=== PATIENT | male | born 1970 | race Caucasian/White ===

== ENCOUNTER 2020-01-02 12:12 | Inpatient (IN) | payer OTHER ==
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
[2020-01-02] MEDS ORDERED: ACETAMINOPHEN 325 MG TABLET (FP) PO PRN ×2 (15:28)
[2020-01-02] MEDS ORDERED: chlordiazePOXIDE HCL 25 MG CAPSULE PO PRN (15:28)
[2020-01-02] MEDS ORDERED: MAGNESIUM HYDROX 2400MG/30ML ORAL SUSPENSION 30 ML CUP PO PRN (15:28)
[2020-01-02] MEDS ORDERED: MAG HYDROX/AL HYDROX/SIMETH 30 ML UNIT-DOSE CUP PO PRN (15:28)
[2020-01-02] MEDS ORDERED: BISMUTH SUBSALICYLATE 524 MG/30 ML UD PO PRN (15:28)
[2020-01-02] MEDS ORDERED: hydrOXYzine PAMOATE 25 MG CAPSULE (FP) PO PRN (15:28)
[2020-01-02] MEDS ORDERED: MENTHOL/PHENOL 1 EACH UD MM PRN (15:28)
[2020-01-02] MEDS ORDERED: MAGNESIUM CITRATE 300 ML BOTTLE PO PRN (15:28)
[2020-01-02] MEDS ORDERED: METHOCARBAMOL 500 MG TABLET PO PRN (15:28)
[2020-01-02 17:05] VITALS: BMI 24.0
[2020-01-02] MEDS: chlordiazePOXIDE HCL 25 MG CAPSULE PO SCH ×2 (18:12→22:04)
[2020-01-02] MEDS: NICOTINE 21 MG/24 HOURS TOPICAL PATCH TD SCH (18:14)
[2020-01-02] MEDS: THIAMINE HCL 100 MG TABLET (FP) PO SCH (22:04)
[2020-01-02] MEDS: MELATONIN 5 MG TABLETS PO PRN (22:06)
[2020-01-03] MEDS: chlordiazePOXIDE HCL 25 MG CAPSULE PO SCH ×4 (05:44→22:28)
--- NOTE | 2020-01-03 09:14 | PN ---
S CIWA - CIWA Score Nausea/Vomitin-No Nausea/No Vomiting Muscle Tremors: 2 Anxiety: 3 Agitation: 4-Moderately Restless (keep waking me up) Paroxysmal Sweats: 2 Orientation: 0-Oriented Tacttile Disturbances: 0-None Auditory Disturbances: 0-None Visual Disturbances: 1-Very Mild Sensitivity Headache: 0-None Present CIWA-Ar Total Score: 12 [facility] Progress Note (SOAP) Subjective: 49 years old male admitted on 01/02/20 for alcohol withdrawal sx management treating with librium regiment ate breakfast resting in bed limited conversation with staff "stop waking me up " Objective: 01/03/20 09:13 Vital Signs Temperature 96.9 F L 01/03/20 05:58 Pulse Rate 78 01/03/20 05:58 Respiratory Rate 18 01/03/20 07:34 Blood Pressure 145/88 01/03/20 05:58 O2 Sat by Pulse Oximetry (%) 01/03/20 09:14 lab pending bp elevation upon admission patient refuses to provide more information regarding hypertension begin amlodipine 10 mg po daily 01/03/20 09:15 Assessment: 01/03/20 09:16 alcohol withdrawal Plan: librium regiment
[2020-01-03] MEDS ORDERED: PRENATAL VITAMINS W/ FOLIC ACID TABLET (FP) PO SCH (10:00)
[2020-01-03] MEDS ORDERED: amLODIPine BESYLATE 10 MG TABLET (FP) PO SCH (10:00)
[2020-01-03] MEDS: NICOTINE 21 MG/24 HOURS TOPICAL PATCH TD SCH (10:35)
[2020-01-03] MEDS: IBUPROFEN 400 MG TABLET (FP) PO PRN ×2 (10:37→17:52)
[2020-01-03 10:38] LABS: HEMATOCRIT 45.1 % (35.4-49); HEMOGLOBIN 14.9 GM/dL (11.7-16.9); MCH 27.3 pg (25.7-33.7); MCHC 33.1 g/dl (32.0-35.9); MEAN CELL VOLUME 82.3 fl (80-96); MEAN PLT VOLUME 10.4 fl (7.5-11.1); PLATELET COUNT 194 K/MM3 (134-434); RBC 5.47 M/mm3 (4.00-5.60); RDW 15.5 % (11.9-15.9); WHITE BLOOD COUNT 5.7 K/mm3 (4.0-10.0)
[2020-01-03 10:50] LABS: ALBUMIN 3.6 g/dl (3.4-5.0); BILIRUBIN,TOTAL 0.7 mg/dL (0.2-1); BLOOD UREA NITROGEN 14.2 mg/dL (7-18); CALCIUM 9.2 mg/dL (8.5-10.1); TOT PROT 8.6 g/dl (6.4-8.2)
--- NOTE | 2020-01-03 12:37 | CONSULT ---
[facility] Psychiatric Consult - Data Date of interview: 01/03/20 Admission source: [facility] Identifying data: First visit to [facility] and admission to [address] [place] [address] for this 49 y/o male self-referred for detoxification treatment. AL issues : alcohol, cannabis, nicotine. Patient is , father of three, domiciled, unemployed nd supported on SSI benefits. Substance Abuse History: Discussed with the patient. Details in current [facility] report as follows : Smoking history: Current every day smoker. Aproximately how many cigarettes per day: 20. Initiated information on smoking cessation: Yes. 'Breaking Loose' booklet given: 01/02/20. - Substance & Tx. History. Substance Use Type: Alcohol, Marijuana. - Substances abused. Alcohol. Substance route: Oral. Frequency: Daily. Amount used: 4-5 pints of Rum or Vodka, 3-4 24 ounce beer. Age of first use: 16. Date of last use: 01/01/20. * * Marijuana/Hashish. Frequency: Daily. Amount used: 1-2 joints per day. Age of first use: 9. Date of last use: 01/01/20 Medical History: Medical profile is remarkable for chronic lumbar pain, hepatitis C and HIV infection (on ART medications). Reported allergy to penicillins. Psychiatric History: Patient admits to history of psychiatric hospitalizations ( institutions in [place]) about 15 years ago. Reportedly diagnosed with Bipolar Disorder and ADHD. Mr Corey indicates that he has been off psychotropic medications for months. No affiliation with psychiatric OPD care providers. Antecedent of one suicide attempt : age 16. Physical/Sexual Abuse/Trauma History: Patient denies history of abuse. Additional Comment: Urine drug screen results: THC-Marijuana, BZO- Benzodiazepines. Noted. Mental Status Exam - Mental Status Exam Alert and Oriented to: Time, Place, Person Cognitive Function: Good Patient Appearance: Unkempt, Disheveled Mood: Nervous, Withdrawn Affect: Mood Congruent, Constricted Patient Behavior: Fatigued, Appropriate, Cooperative Speech Pattern: Clear, Appropriate Voice Loudness: Normal Thought Process: Goal Oriented Thought Disorder: Not Present Hallucinations: Denies Suicidal Ideation: Denies Homicidal Ideation: Denies Insight/Judgement: Poor Sleep: Well Appetite: Good Gait/Station: Other (not obseved. In bed all morning) Psychiatric Findings - Problem List ([place] 1, 2,3) (1) Alcohol withdrawal syndrome without complication Current Visit: Yes Status: Acute (2) Marijuana abuse Current Visit: Yes Status: Chronic (3) Nicotine dependence Current Visit: Yes Status: Chronic (4) Substance induced mood disorder Current Visit: Yes Status: Chronic - Initial Treatment Plan Initial Treatment Plan: Psychoeducation. Sleep hygiene. Detoxification. Support. MAT services discussed with patient. Observation.
--- NOTE | 2020-01-03 13:04 | EKG ---
Test Reason : Blood Pressure : / mmHG Vent. Rate : 079 BPM Atrial Rate : 079 BPM P-R Int : 132 ms QRS Dur : 100 ms QT Int : 368 ms P-R-T Axes : 061 020 054 degrees QTc Int : 421 ms NORMAL SINUS RHYTHM RSR' OR QR PATTERN IN V1 SUGGESTS RIGHT VENTRICULAR CONDUCTION DELAY MINIMAL VOLTAGE CRITERIA FOR LVH, MAY BE NORMAL VARIANT BORDERLINE ECG NO PREVIOUS ECGS AVAILABLE Confirmed by Quinton Cowan MD ([id number]) on 01/03/2020 1:04:34 PM Referred By: Confirmed By:Quinton Cowan MD
[2020-01-03 13:14] VITALS: TEMP 97.5
[2020-01-03] MEDS: THIAMINE HCL 100 MG TABLET (FP) PO SCH (22:28)
[2020-01-03] MEDS: MELATONIN 5 MG TABLETS PO PRN (22:28)
[2020-01-04] MEDS ORDERED: chlordiazePOXIDE HCL 25 MG CAPSULE PO SCH (05:00)
[2020-01-04] MEDS: IBUPROFEN 400 MG TABLET (FP) PO PRN (05:58)
[2020-01-04 06:42] VITALS: BP 130/95; PULSE 108
--- NOTE | 2020-01-04 08:59 | DS ---
[facility] Detox Discharge Summary Admission Date: 01/02/20 Discharge Date: 01/04/20 - History Present History: Alcohol Dependence Additional Comments: 49 years old male admitted on 01/02/20 for alcohol withdrawal sx management treated with librium detox regiment seen by psychiatrist no medical intervention at this time Mr Corey prefers to leave the detox today that "I have to sign off my housing today" patient is doing well through out the detox process attended behavior and psychosocial therapies groups and meetings discussed aftercare with staff and positive about sobriety maintenance patient is alert oriented x 3 cardiac s1s2 regular rate rhythm respiratory clear lungs bilaterally on auscultation extremities full range of motion Pertinent Past History: time for discharge: 33 minutes - Physical Exam Results Vital Signs: Vital Signs Temperature 97.5 F L 01/04/20 06:41 Pulse Rate 108 H 01/04/20 06:41 Respiratory Rate 18 01/04/20 06:41 Blood Pressure 130/95 01/04/20 06:41 O2 Sat by Pulse Oximetry (%) Pertinent Admission Physical Exam Findings: alcohol withdrawal Laboratory Last Values WBC 5.7 K/mm3 (4.0-10.0) 01/03/20 07:45 RBC 5.47 M/mm3 (4.00-5.60) 01/03/20 07:45 Hgb 14.9 GM/dL (11.7-16.9) 01/03/20 07:45 Hct 45.1 % (35.4-49) 01/03/20 07:45 MCV 82.3 fl (80-96) 01/03/20 07:45 MCH 27.3 pg (25.7-33.7) 01/03/20 07:45 MCHC 33.1 g/dl (32.0-35.9) 01/03/20 07:45 RDW 15.5 % (11.9-15.9) 01/03/20 07:45 Plt Count 194 K/MM3 (134-434) 01/03/20 07:45 MPV 10.4 fl (7.5-11.1) 01/03/20 07:45 Sodium 136 mmol/L (136-145) 01/03/20 07:45 Potassium 4.0 mmol/L (3.5-5.1) 01/03/20 07:45 Chloride 104 mmol/L (98-107) 01/03/20 07:45 Carbon Dioxide 26 mmol/L (21-32) 01/03/20 07:45 Anion Gap 6 MMOL/L (8-16) L 01/03/20 07:45 BUN 14.2 mg/dL (7-18) 01/03/20 07:45 Creatinine 1.0 mg/dL (0.55-1.3) 01/03/20 07:45 Est GFR (CKD-EPI)AfAm 103.42 01/03/20 07:45 Est GFR (CKD-EPI)NonAf 89.23 01/03/20 07:45 Random Glucose 88 mg/dL (74-106) 01/03/20 07:45 Calcium 9.2 mg/dL (8.5-10.1) 01/03/20 07:45 Total Bilirubin 0.7 mg/dL (0.2-1) 01/03/20 07:45 AST 192 U/L (15-37) H 01/03/20 07:45 ALT 223 U/L (13-61) H 01/03/20 07:45 Alkaline Phosphatase 76 U/L (45-117) 01/03/20 07:45 Total Protein 8.6 g/dl (6.4-8.2) H 01/03/20 07:45 Albumin 3.6 g/dl (3.4-5.0) 01/03/20 07:45 RPR Titer Nonreactive (NONREACTIVE) 01/03/20 07:45 lab noted possible alcohol induced ast elevation - Treatment Hospital Course: Detox Protocol Followed, Detoxed Safely, Responded well, Discharged Condition Good, Rehab Referral Accepted Patient has Accepted a Rehab Referral to: [facility] - Diagnosis (1) Alcohol withdrawal syndrome without complication Status: Acute (2) Nicotine dependence Status: Acute Qualifiers: Nicotine product type: cigarettes Substance use status: in withdrawal Qualified Code(s): F17.213 - Nicotine dependence, cigarettes, with withdrawal (3) Substance induced mood disorder Status: Suspected - AMA Did Patient Leave Against Medical Advice: No CIWA Score - CIWA Score Nausea/Vomitin-No Nausea/No Vomiting Muscle Tremors: 1-None Visible, but [place] Anxiety: 2 Agitation: 4-Moderately Restless (keep waking me up) Paroxysmal Sweats: 1-Minimal Palms Moist Orientation: 0-Oriented Tacttile Disturbances: 0-None Auditory Disturbances: 0-None Visual Disturbances: 0-None Headache: 0-None Present CIWA-Ar Total Score: 8
[2020-01-05] MEDS ORDERED: chlordiazePOXIDE HCL 10 MG CAPSULE PO PRN
[2020-01-05] MEDS ORDERED: chlordiazePOXIDE HCL 10 MG CAPSULE PO SCH (05:00)
[2020-01-06] MEDS ORDERED: chlordiazePOXIDE HCL 10 MG CAPSULE PO SCH (05:00)
[2020-01-07] MEDS ORDERED: chlordiazePOXIDE HCL 10 MG CAPSULE PO ONE (05:00)
== END 2020-01-04 09:00 | disposition home or self-care (01) | DRG 775 ==
LOC: YASAS 12:12 → Y3N 17:23
PROVIDERS: ADMIT Allergy & Immunology; ATTEND Allergy & Immunology
PROC: HZ2ZZZZ Detoxification Services for Substance Abuse Treatment (ICD-10-PCS; principal; 2020-01-02)
DX: F10.230 Alcohol dependence with withdrawal, uncomplicated (principal); F12.10 Cannabis abuse, uncomplicated; F17.210 Nicotine dependence, cigarettes, uncomplicated; F19.24 Other psychoactive substance dependence with psychoactive substance-induced mood disorder; F31.89 Other bipolar disorder; F20.9 Schizophrenia, unspecified; Z21 Asymptomatic human immunodeficiency virus [HIV] infection status; M54.5 Low back pain; G89.29 Other chronic pain; Z86.19 Personal history of other infectious and parasitic diseases; Z88.0 Allergy status to penicillin
CPT/HCPCS: 36415; 80053; 85027; 86593; 93005; 93010

== ENCOUNTER 2020-10-30 08:08 | Inpatient (IN) | payer OTHER ==
[2020-10-30 09:11] VITALS: BMI 23.5
[2020-10-30] MEDS ORDERED: MENTHOL/PHENOL 1 EACH UD MM PRN (09:30)
[2020-10-30] MEDS ORDERED: NICOTINE POLACRILEX 2 MG GUM BUC PRN (09:30)
[2020-10-30] MEDS ORDERED: ACETAMINOPHEN 325 MG TABLET (FP) PO PRN ×2 (09:30)
[2020-10-30] MEDS ORDERED: MAG HYDROX/AL HYDROX/SIMETH 30 ML UNIT-DOSE CUP PO PRN (09:30)
[2020-10-30] MEDS ORDERED: BISMUTH SUBSALICYLATE 262 MG/15 ML BTL PO PRN (09:30)
[2020-10-30] MEDS ORDERED: MAGNESIUM CITRATE 300 ML BOTTLE PO PRN (09:30)
[2020-10-30] MEDS ORDERED: chlordiazePOXIDE HCL 25 MG CAPSULE PO PRN (09:30)
[2020-10-30] MEDS ORDERED: ONDANSETRON *ODT* 4 MG TABLET SL PRN (09:30)
[2020-10-30] MEDS ORDERED: METHOCARBAMOL 500 MG TABLET PO PRN (09:30)
[2020-10-30] MEDS ORDERED: MAGNESIUM HYDROX 2400MG/30ML ORAL SUSPENSION 30 ML CUP PO PRN (09:30)
[2020-10-30] MEDS ORDERED: LISINOPRIL 10 MG TABLET ONE (09:31)
[2020-10-30] MEDS: IBUPROFEN 400 MG TABLET (FP) PO PRN (10:00)
[2020-10-30] MEDS: LISINOPRIL 10 MG TABLET PO SCH (10:14)
[2020-10-30] MEDS: NICOTINE 7 MG/24 HOURS TOPICAL PATCH TD SCH (10:36)
[2020-10-30] MEDS: chlordiazePOXIDE HCL 25 MG CAPSULE PO SCH ×3 (10:37→22:40)
[2020-10-30] MEDS: hydrOXYzine PAMOATE 25 MG CAPSULE (FP) PO SCH ×4 (10:37→22:39)
[2020-10-30] MEDS: PRENATAL VITAMINS W/ FOLIC ACID TABLET (FP) PO SCH (10:37)
[2020-10-30 14:39] LABS: POTASSIUM 4.3 mmol/L (3.5-5.1)
[2020-10-30 14:42] LABS: CALCIUM 9.1 mg/dL (8.5-10.1)
[2020-10-30 14:43] LABS: ALBUMIN 3.5 g/dl (3.4-5.0); BLOOD UREA NITROGEN 22.8 mg/dL (7-18); HEMATOCRIT 40.3 % (35.4-49); HEMOGLOBIN 12.7 GM/dL (11.7-16.9); MCH 26.1 pg (25.7-33.7); MCHC 31.6 g/dl (32.0-35.9); MEAN CELL VOLUME 82.8 fl (80-96); MEAN PLT VOLUME 9.8 fl (7.5-11.1); PLATELET COUNT 194 K/MM3 (134-434); RBC 4.87 M/mm3 (4.00-5.60); WHITE BLOOD COUNT 5.8 K/mm3 (4.0-10.0)
[2020-10-30 14:46] LABS: BILIRUBIN,TOTAL 0.4 mg/dL (0.2-1)
[2020-10-30] MEDS ORDERED: MELATONIN 5 MG TABLETS PO SCH (22:00)
[2020-10-30] MEDS: THIAMINE HCL 100 MG TABLET (FP) PO SCH (22:38)
[2020-10-30] MEDS: MELATONIN 5 MG TABLETS PO PRN (22:38)
[2020-10-31] MEDS: chlordiazePOXIDE HCL 25 MG CAPSULE PO SCH ×2 (06:03→10:44)
[2020-10-31] MEDS: hydrOXYzine PAMOATE 25 MG CAPSULE (FP) PO SCH ×5 (06:03→22:20)
[2020-10-31] MEDS: IBUPROFEN 400 MG TABLET (FP) PO PRN ×2 (06:04→13:36)
[2020-10-31] MEDS: NICOTINE 7 MG/24 HOURS TOPICAL PATCH TD SCH (10:43)
[2020-10-31] MEDS: PRENATAL VITAMINS W/ FOLIC ACID TABLET (FP) PO SCH (10:43)
[2020-10-31] MEDS: LISINOPRIL 10 MG TABLET PO SCH (10:43)
[2020-10-31] MEDS: risperiDONE 1 MG TABLET PO SCH ×2 (13:58→22:20)
[2020-10-31] MEDS: BENZTROPINE MESYLATE 1 MG TABLET PO SCH ×2 (13:58→22:21)
[2020-10-31] MEDS ORDERED: LORazepam 1 MG TABLET PO PRN (14:51)
[2020-10-31] MEDS: LORazepam 2 MG TABLET PO SCH ×2 (18:07→22:20)
[2020-10-31] MEDS: MELATONIN 5 MG TABLETS PO PRN (22:19)
[2020-10-31] MEDS: THIAMINE HCL 100 MG TABLET (FP) PO SCH (22:21)
[2020-11-01] MEDS ORDERED: chlordiazePOXIDE HCL 25 MG CAPSULE PO SCH (05:00)
[2020-11-01] MEDS: hydrOXYzine PAMOATE 25 MG CAPSULE (FP) PO SCH ×2 (05:34→10:26)
[2020-11-01] MEDS: LORazepam 2 MG TABLET PO SCH ×2 (05:34→10:25)
[2020-11-01 09:16] VITALS: BP 141/87; PULSE 130; TEMP 98
[2020-11-01] MEDS: BENZTROPINE MESYLATE 1 MG TABLET PO SCH (10:24)
[2020-11-01] MEDS: risperiDONE 1 MG TABLET PO SCH (10:24)
[2020-11-01] MEDS: LISINOPRIL 10 MG TABLET PO SCH (10:25)
[2020-11-01] MEDS: PRENATAL VITAMINS W/ FOLIC ACID TABLET (FP) PO SCH (10:26)
[2020-11-01] MEDS: NICOTINE 7 MG/24 HOURS TOPICAL PATCH TD SCH (10:26)
[2020-11-01] MEDS ORDERED: FLU VACCINE (FLULAVAL) PF 60 MCG/0.5 ML SYRINGE 2020-2021 IM ONE (12:00)
[2020-11-02] MEDS ORDERED: chlordiazePOXIDE HCL 10 MG CAPSULE PO PRN
[2020-11-02] MEDS ORDERED: chlordiazePOXIDE HCL 10 MG CAPSULE PO SCH (05:00)
[2020-11-02] MEDS ORDERED: LORazepam 1 MG TABLET PO SCH (05:00)
[2020-11-03] MEDS ORDERED: LORazepam 0.5 MG TABLET PO PRN
[2020-11-03] MEDS ORDERED: chlordiazePOXIDE HCL 10 MG CAPSULE PO SCH (05:00)
[2020-11-03] MEDS ORDERED: LORazepam 0.5 MG TABLET PO SCH (05:00)
[2020-11-04] MEDS ORDERED: chlordiazePOXIDE HCL 10 MG CAPSULE PO ONE (05:00)
[2020-11-04] MEDS ORDERED: LORazepam 0.5 MG TABLET PO ONE (05:00)
== END 2020-11-01 11:17 | disposition left against medical advice (07) | DRG 770 ==
LOC: YASAS 08:08 → Y3N 09:47
PROVIDERS: ADMIT Allergy & Immunology; ATTEND Allergy & Immunology
PROC: HZ2ZZZZ Detoxification Services for Substance Abuse Treatment (ICD-10-PCS; principal; 2020-10-30)
DX: F10.230 Alcohol dependence with withdrawal, uncomplicated (principal); F10.280 Alcohol dependence with alcohol-induced anxiety disorder; F10.282 Alcohol dependence with alcohol-induced sleep disorder; F12.10 Cannabis abuse, uncomplicated; F17.213 Nicotine dependence, cigarettes, with withdrawal; F90.9 Attention-deficit hyperactivity disorder, unspecified type; F25.9 Schizoaffective disorder, unspecified; F31.89 Other bipolar disorder; F39 Unspecified mood [affective] disorder; I10 Essential (primary) hypertension; Z21 Asymptomatic human immunodeficiency virus [HIV] infection status; M54.5 Low back pain; G89.29 Other chronic pain; Z88.0 Allergy status to penicillin; Z86.19 Personal history of other infectious and parasitic diseases; Z59.0 Homelessness
CPT/HCPCS: 36415; 80053; 84450; 85027; 86593; 86780; C9803; J2794; U0003

== ENCOUNTER 2023-05-17 12:05 | Inpatient (IN) | payer OTHER ==
[2023-05-17 12:43] VITALS: BMI 22.2
[2023-05-17] MEDS ORDERED: LORazepam 1 MG TABLET PO PRN (13:20)
[2023-05-17] MEDS ORDERED: ONDANSETRON *ODT* 4 MG TABLET SL PRN (13:20)
[2023-05-17] MEDS ORDERED: POLYETHYLENE GLYCOL (HEALTHYLAX) 3350 17 GM PACKET PO PRN (13:20)
[2023-05-17] MEDS ORDERED: NICOTINE POLACRILEX 2 MG GUM BUC PRN (13:20)
[2023-05-17] MEDS ORDERED: guaiFENesin 600 MG TABLET.ER (FP) PO PRN (13:20)
[2023-05-17] MEDS ORDERED: LOPERAMIDE HCL 2 MG CAPSULE PO PRN (13:20)
[2023-05-17] MEDS ORDERED: ACETAMINOPHEN 325 MG TABLET (FP) PO PRN (13:20)
[2023-05-17] MEDS ORDERED: MAG HYDROX/AL HYDROX/SIMETH 30 ML UNIT-DOSE CUP PO PRN (13:20)
[2023-05-17] MEDS ORDERED: NICOTINE 10 MG CARTRIDGE (INHALER) IH PRN (13:20)
[2023-05-17] MEDS ORDERED: NALOXONE HCL 0.4 MG/ML VIAL IM PRN (13:20)
[2023-05-17] MEDS ORDERED: BENZOCAINE/MENTHOL (CHLORASEPTIC ) LOZENGE MM PRN (13:20)
[2023-05-17] MEDS ORDERED: MAGNESIUM HYDROX 2400MG/30ML ORAL SUSPENSION 30 ML CUP PO PRN (13:20)
[2023-05-17] MEDS ORDERED: IBUPROFEN 400 MG TABLET (FP) PO PRN (13:20)
[2023-05-17] MEDS ORDERED: IBUPROFEN 600 MG TABLET (FP) PO PRN (13:20)
[2023-05-17] MEDS ORDERED: BENZONATATE 200 MG CAPSULE PO PRN (13:20)
[2023-05-17] MEDS ORDERED: DICYCLOMINE HCL 10 MG CAPSULE PO PRN (13:20)
[2023-05-17] MEDS ORDERED: BISMUTH SUBSALICYLATE 524 MG/30 ML PO PRN (13:20)
[2023-05-17] MEDS ORDERED: NALOXONE HCL (KLOXXADO) 8 MG SPRAY NS PRN (13:20)
[2023-05-17] MEDS: hydrOXYzine PAMOATE 25 MG CAPSULE (FP) PO PRN (15:31)
[2023-05-17] MEDS: METHOCARBAMOL 500 MG TABLET PO PRN (17:23)
[2023-05-17] MEDS: LORazepam 2 MG TABLET PO SCH ×2 (17:23→22:20)
[2023-05-17] MEDS ORDERED: cloNIDine HCL 0.1 MG TABLET PO ONE (21:47)
[2023-05-17] MEDS: THIAMINE HCL 100 MG TABLET (FP) PO SCH (22:20)
[2023-05-17] MEDS: MELATONIN 5 MG TABLETS PO SCH (22:20)
[2023-05-18] MEDS: LORazepam 2 MG TABLET PO SCH ×4 (05:22→22:24)
[2023-05-18] MEDS: PRENATAL VITAMINS W/ FOLIC ACID TABLET (FP) PO SCH (10:01)
[2023-05-18 11:39] LABS: HEMATOCRIT 45.6 % (35.4-49); HEMOGLOBIN 14.7 GM/dL (11.7-16.9); MCH 27.4 pg (25.7-33.7); MCHC 32.3 g/dl (32.0-35.9); MEAN CELL VOLUME 84.9 fl (80-96); MEAN PLT VOLUME 11.1 fl (7.5-11.1); PLATELET COUNT 178 10^3/uL (134-434); RBC 5.37 M/mm3 (4.00-5.60); RDW 14.8 % (11.9-15.9); WHITE BLOOD COUNT 8.5 K/mm3 (4.0-10.0)
[2023-05-18 11:42] LABS: POTASSIUM 4.4 mmol/L (3.5-5.1)
[2023-05-18 11:44] LABS: CALCIUM 9.9 mg/dL (8.5-10.1)
[2023-05-18 11:45] LABS: BLOOD UREA NITROGEN 18.6 mg/dL (7-18)
[2023-05-18 11:49] LABS: TOT PROT 9.6 g/dl (6.4-8.2)
[2023-05-18] MEDS: LISINOPRIL 10 MG TABLET PO SCH (11:56)
[2023-05-18] MEDS: THIAMINE HCL 100 MG TABLET (FP) PO SCH (22:23)
[2023-05-18] MEDS: MELATONIN 5 MG TABLETS PO SCH (22:23)
[2023-05-18] MEDS: METHOCARBAMOL 500 MG TABLET PO PRN (22:24)
[2023-05-18] MEDS: hydrOXYzine PAMOATE 25 MG CAPSULE (FP) PO PRN (22:24)
[2023-05-19] MEDS: LORazepam 1 MG TABLET PO SCH ×2 (05:08→10:00)
[2023-05-19 09:09] VITALS: BP 150/90; PULSE 90; RESP 17; TEMP 97.8
[2023-05-19] MEDS: LISINOPRIL 10 MG TABLET PO SCH (10:00)
[2023-05-19] MEDS: PRENATAL VITAMINS W/ FOLIC ACID TABLET (FP) PO SCH (10:00)
[2023-05-20] MEDS ORDERED: LORazepam 0.5 MG TABLET PO PRN
[2023-05-20] MEDS ORDERED: LORazepam 0.5 MG TABLET PO SCH (05:00)
[2023-05-21] MEDS ORDERED: LORazepam 0.5 MG TABLET PO ONE (05:00)
== END 2023-05-19 08:49 | disposition left against medical advice (07) | DRG 770 ==
LOC: YASAS 12:05 → SUATTDRO 12:05 → Y3N 14:32
PROVIDERS: ADMIT Allergy & Immunology; ATTEND Surgery
PROC: HZ2ZZZZ Detoxification Services for Substance Abuse Treatment (ICD-10-PCS; principal; 2023-05-17)
DX: F10.230 Alcohol dependence with withdrawal, uncomplicated (principal); F12.20 Cannabis dependence, uncomplicated; F17.210 Nicotine dependence, cigarettes, uncomplicated; F25.9 Schizoaffective disorder, unspecified; F19.24 Other psychoactive substance dependence with psychoactive substance-induced mood disorder; B20 Human immunodeficiency virus [HIV] disease; I10 Essential (primary) hypertension; M54.50 Low back pain, unspecified; G89.29 Other chronic pain; R73.9 Hyperglycemia, unspecified; R74.8 Abnormal levels of other serum enzymes; Z86.19 Personal history of other infectious and parasitic diseases; Z88.0 Allergy status to penicillin
CPT/HCPCS: 36415; 80053; 83036; 85027; 86593; 86780; 87635